=== PATIENT | male | born 1950 | race Caucasian/White ===

== ENCOUNTER → 2018-02-13 | Outpatient (CLI) | payer MEDICARE, BC ==
--- NOTE | 2018-02-14 07:03 | US ---
EXAMINATION TYPE: US carotid duplex BILAT DATE OF EXAM: 02/13/2018 COMPARISON: NONE CLINICAL HISTORY: I25.10 CAD. EXAM MEASUREMENTS: RIGHT: Peak Systolic Velocity (PSV) cm/sec ----- Right CCA: 79.3 ----- Right ICA: 90.8 ----- Right ECA: 95.8 ICA/CCA ratio: 1.1 RIGHT: End Diastole cm/sec ----- Right CCA: 21.1 ----- Right ICA: 19.3 ----- Right ECA: 32.7 LEFT: Peak Systolic Velocity (PSV) cm/sec ----- Left CCA: 59.0 ----- Left ICA: 76.5 ----- Left ECA: 112.4 ICA/CCA ratio: 1.3 LEFT: End Diastole cm/sec ----- Left CCA: 13.7 ----- Left ICA: 33.6 ----- Left ECA: 20.4 VERTEBRALS (direction of flow): Right Vertebral: Antegrade Left Vertebral: Antegrade Rhythm: Normal Mild amount of plaque visualized bilateral bulbs. No elevated velocities, no significant stenosis. To rtuous vessels bilaterally. Right side thyroid nodule visualized measuring 1.8 cm IMPRESSION: 1. Small amount of plaque noted bilaterally with no significant hemodynamic stenosis. 2. There is a 1.8 cm right-sided thyroid nodule. Criteria for Assigning % of Stenosis / Diameter reduction (Estimation based on the indirect measurements of the internal carotid artery velocities (ICA PSV). 1. Normal (no stenosis)=ICA PSV < 125 cm/s: ratio < 2.0: ICA EDV<40 cm/s. 2. Less than 50% stenosis=ICA PSV < 125 cm/s: ratio < 2.0: ICA EDV<40 cm/s. 3. 50 to 69% stenosis=ICA PSV of 125 to 230 cm/s: ration 2.0 ? 4.0: ICA EDV 40-100 cm/s. 4. Greater than 70% stenosis to near occlusion= ICA PSV > 230 cm/s: ratio > 4.0: ICA EDV > 100 cm/s. 5. Near occlusion= ICA PSV velocities may be low or undetectable: variable ratio and ICA EDV. 6. Total occlusion=unable to detect flow.
== END | disposition home or self-care (01) ==
LOC: RADUSWWP 15:43 → MERGE 16:20
PROVIDERS: ATTEND Nurse Practitioner Family
DX: I65.23 Occlusion and stenosis of bilateral carotid arteries (principal); I25.10 Atherosclerotic heart disease of native coronary artery without angina pectoris
CPT/HCPCS: 93880

== ENCOUNTER → 2018-06-20 | Outpatient (CLI) | payer MEDICARE, BC ==
--- NOTE | 2018-06-21 09:14 | US ---
EXAMINATION TYPE: US thyroid st tissue head/neck DATE OF EXAM: 06/20/2018 COMPARISON: NONE CLINICAL HISTORY: E04.1 Nodule noted on carotid doppler. Thyroid nodule seen on recent carotid ultras ound GLAND SIZE: Right Lobe: 4.3 x 2.1 x 1.8 cm Overall Parenchyma: homogenous Left Lobe: 3.4 x 1.2 x 1.3 cm Overall Parenchyma: homogeneous Isthmus Thickness: 0.3 cm NODULES RIGHT: # of nodules measured on right: 1 1. 2.2 X 1.5 x 1.8 cm hypoechoic solid nodule with small cystic component at the mid pole with well -defined margins; . This nodule is wider than tall and shows intranodular vascularity. Prior size: no previous LEFT: # of nodules measured on left: 0 ISTHMUS: # of nodules measured in the isthmus: 0 Bilateral neck scanned, no evidence of lymphadenopathy. IMPRESSION: Solid nodule with cystic component to the right thyroid lobe. Consider tissue diagnosis.
== END | disposition home or self-care (01) ==
LOC: RADUSWWP 16:41
PROVIDERS: ATTEND Internal Medicine
DX: E04.1 Nontoxic single thyroid nodule (principal)
CPT/HCPCS: 76536

== ENCOUNTER 2018-07-21 09:08 | Day surgery (SDC) | payer MEDICARE, BC ==
[2018-07-21] MEDS ORDERED: ALPRAZolam 0.25 MG TAB PO ONE (09:11)
[2018-07-21 09:37] VITALS: RESP 14; TEMP 97.8
[2018-07-21 11:07] VITALS: BP 125/72; PULSE 69
--- NOTE | 2018-07-21 11:17 | US ---
ULTRASOUND GUIDED FNA THYROID BIOPSY: CLINICAL HISTORY: Right thyroid nodule FINDINGS: The procedure was explained to the patient. The risks, complications, benefits and alternatives were discussed and any questions were answered. Informed consent was obtained. Patient was placed supin e on the ultrasound table and prepped and draped in the usual sterile fashion. Utilizing a 25 gauge needle, five passes were made into the requested right thyroid nodule. Patient was stable throughout the procedure. Pathology is pending. All elements of maximal barrier technique were utilized. IMPRESSION: 1. Successful ultrasound guided FNA thyroid biopsy.
== END 2018-07-21 11:15 | disposition home or self-care (01) ==
LOC: RADPROMAIN 09:08
PROVIDERS: ATTEND Internal Medicine
DX: E04.1 Nontoxic single thyroid nodule (principal)
CPT/HCPCS: 10005; 88173; 88305